=== PATIENT | female | born 1945 | race Caucasian/White ===

== ENCOUNTER → 2017-12-24 | Outpatient (CLI) | payer OTHER | LOC: OIH 09:20 | PROVIDERS: ATTEND Internal Medicine | DX: J44.9 Chronic obstructive pulmonary disease, unspecified (principal) | CPT/HCPCS: 71046 ==

== ENCOUNTER → 2018-01-28 | Outpatient (CLI) | payer OTHER | END | disposition home or self-care (01) | LOC: OIH 10:11 | PROVIDERS: ATTEND Internal Medicine | DX: S63.501A Unspecified sprain of right wrist, initial encounter (principal); M79.89 Other specified soft tissue disorders; X58.XXXA Exposure to other specified factors, initial encounter; Y93.89 Activity, other specified; Y92.89 Other specified places as the place of occurrence of the external cause; Y99.8 Other external cause status | CPT/HCPCS: 73100 ==

== ENCOUNTER → 2019-06-06 | Outpatient (CLI) | payer OTHER | END | disposition home or self-care (01) | LOC: OIH 10:03 | PROVIDERS: ATTEND Internal Medicine | DX: M22.3X1 Other derangements of patella, right knee (principal) | CPT/HCPCS: 73560 ==

== ENCOUNTER 2021-11-22 07:28 | Inpatient (IN) | payer OTHER ==
[2021-11-22 07:42] LABS: BASOPHILS % (AUTO) 0.4 % (0.0-5.0); EOSINOPHILS % (AUTO) 0.2 % (0.0-8.0); HEMATOCRIT 23.5 % (36-48); LYMPHOCYTES % (AUTO) 14.9 % (21.0-51.0); MEAN CORPUSCULAR HEMOGLOBIN 30.1 pg (27.0-33.0); MEAN CORPUSCULAR HGB CONC 30.6 g/dL (32.0-36.0); MEAN CORPUSCULAR VOLUME 98.3 fL (79-99); MONOCYTES % (AUTO) 5.7 % (3.0-13.0); NEUTROPHILS % (AUTO) 78.3 % (40.0-77.0); PLATELET COUNT (AUTO) 182 K/uL (130-400); RED BLOOD CELL COUNT(AUTO) 2.39 MIL/uL (4.00-5.50); RED CELL DISTRIBUTION WIDTH 13.6 % (11.0-15.5); WHITE BLOOD COUNT (AUTO) 13.5 K/uL (4.8-10.8)
[2021-11-22 07:54] LABS: INR 1.06 (0.85-1.15); PROTHROMBIN TIME 11.5 SEC (9.6-11.6)
[2021-11-22 07:57] LABS: ALBUMIN 2.9 g/dL (3.5-5.0); BILIRUBIN,TOTAL 0.2 mg/dL (0.2-1.0); CREATININE 0.7 mg/dL (0.5-1.5); POTASSIUM 4.4 mmol/L (3.5-5.1); TOTAL PROTEIN, SERUM 5.7 g/dL (6.0-8.3)
[2021-11-22] MEDS ORDERED: LACTULOSE 20 GM/30 ML UDCUP PO PRN (08:30)
[2021-11-22] MEDS ORDERED: ONDANSETRON 4MG INJ IVP PRN (08:30)
[2021-11-22] MEDS ORDERED: LABETALOL 20MG SYG IV PRN (08:30)
[2021-11-22] MEDS ORDERED: OCTREOTIDE ACETATE 1,250 MCG in 0.9% NACL 250ML 250 ML IV SCH (08:30)
[2021-11-22] MEDS ORDERED: ACETAMINOPHEN 325 MG TAB PO PRN (08:30)
[2021-11-22] MEDS ORDERED: PANTOPRAZOLE 40 MG/VIAL IVP SCH (08:30)
[2021-11-22] MEDS ORDERED: HYDRALAZINE 20MG/ML VIAL IV PRN (08:30)
[2021-11-22] MEDS: INSULIN HUMULIN R 100 UNIT/ML 3ML SQ SCH ×3 (11:30→20:42)
[2021-11-22 11:50] VITALS: BP 103/64
[2021-11-22] MEDS: HYDROMORPHONE 0.5 MG SYG (0.5MG/0.5ML) IVP PRN ×2 (14:45→22:05)
[2021-11-22 15:10] VITALS: BP 115/59
[2021-11-22 19:38] LABS: HEMATOCRIT 24.1 % (36-48)
[2021-11-22 20:18] VITALS: BP 135/48
[2021-11-22] MEDS: PANTOPRAZOLE 40 MG/VIAL IVP SCH (20:40)
[2021-11-23] VITALS (14 sets, daily range): BP systolic 101–152; BP diastolic 49–65
[2021-11-23] MEDS: INSULIN HUMULIN R 100 UNIT/ML 3ML SQ SCH ×4 (05:57→21:41)
[2021-11-23 06:11] LABS: HEMATOCRIT 24.3 % (36-48)
[2021-11-23 06:19] LABS: CREATININE 0.6 mg/dL (0.5-1.5); MAGNESIUM 1.9 mg/dL (1.80-2.40); PHOSPHORUS 3.3 mg/dL (2.5-4.9); POTASSIUM 4.3 mmol/L (3.5-5.1)
[2021-11-23] MEDS: PANTOPRAZOLE 40 MG/VIAL IVP SCH (09:00)
[2021-11-23] MEDS ORDERED: PROPOFOL 10 MG/ML 20ML VIAL IV ONE (11:19)
[2021-11-23] MEDS: GABAPENTIN 100 MG CAPSULE PO SCH (20:40)
[2021-11-23] MEDS: PANTOPRAZOLE 40 MG TAB DR PO SCH (20:40)
[2021-11-23 20:55] LABS: HEMATOCRIT 21.8 % (36-48)
[2021-11-24] VITALS: BP_SYST 116; BP_SYST 118; BP_SYST 153; BP_DIAS 52; BP_DIAS 58; BP_DIAS 75
[2021-11-24 03:54] LABS: BASOPHILS % (AUTO) 0.6 % (0.0-5.0); EOSINOPHILS % (AUTO) 1.9 % (0.0-8.0); LYMPHOCYTES % (AUTO) 22.8 % (21.0-51.0); MEAN CORPUSCULAR HEMOGLOBIN 29.5 pg (27.0-33.0); MEAN CORPUSCULAR HGB CONC 31.4 g/dL (32.0-36.0); MONOCYTES % (AUTO) 9.6 % (3.0-13.0); NEUTROPHILS % (AUTO) 64.7 % (40.0-77.0); PLATELET COUNT (AUTO) 142 K/uL (130-400); RED BLOOD CELL COUNT(AUTO) 2.34 MIL/uL (4.00-5.50); RED CELL DISTRIBUTION WIDTH 16.7 % (11.0-15.5); WHITE BLOOD COUNT (AUTO) 5.1 K/uL (4.8-10.8)
[2021-11-24 04:00] VITALS: BP 102/50
[2021-11-24 04:24] LABS: ALBUMIN 2.7 g/dL (3.5-5.0); BILIRUBIN,TOTAL 0.3 mg/dL (0.2-1.0); CREATININE 0.5 mg/dL (0.5-1.5); POTASSIUM 3.7 mmol/L (3.5-5.1); TOTAL PROTEIN, SERUM 5.2 g/dL (6.0-8.3)
[2021-11-24 04:43] LABS: % IRON SATURATION 7.8 % (22-44)
[2021-11-24] MEDS: INSULIN HUMULIN R 100 UNIT/ML 3ML SQ SCH ×4 (05:50→20:45)
[2021-11-24 08:00] VITALS: BP 123/48
[2021-11-24] MEDS: GABAPENTIN 100 MG CAPSULE PO SCH ×3 (08:04→19:54)
[2021-11-24] MEDS: PANTOPRAZOLE 40 MG TAB DR PO SCH ×2 (08:04→19:53)
[2021-11-24 12:00] VITALS: BP 110/49
[2021-11-24 12:27] LABS: HEMATOCRIT 25.8 % (36-48)
[2021-11-24 16:00] VITALS: BP 98/47
[2021-11-24 16:44] LABS: HEMATOCRIT 23.8 % (36-48)
[2021-11-24 20:00] VITALS: BP 109/44
[2021-11-24 20:47] LABS: HEMATOCRIT 24.3 % (36-48)
[2021-11-25] VITALS: BP 120/59
[2021-11-25 04:00] VITALS: BP 134/56
[2021-11-25 04:58] LABS: BASOPHILS % (AUTO) 0.5 % (0.0-5.0); EOSINOPHILS % (AUTO) 1.8 % (0.0-8.0); HEMATOCRIT 26.1 % (36-48); LYMPHOCYTES % (AUTO) 25.9 % (21.0-51.0); MEAN CORPUSCULAR HGB CONC 31.8 g/dL (32.0-36.0); MEAN CORPUSCULAR VOLUME 91.3 fL (79-99); NEUTROPHILS % (AUTO) 61.6 % (40.0-77.0); PLATELET COUNT (AUTO) 127 K/uL (130-400); RED BLOOD CELL COUNT(AUTO) 2.86 MIL/uL (4.00-5.50); WHITE BLOOD COUNT (AUTO) 4.4 K/uL (4.8-10.8)
[2021-11-25 05:29] LABS: ALBUMIN 2.7 g/dL (3.5-5.0); BILIRUBIN,TOTAL 0.4 mg/dL (0.2-1.0); CREATININE 0.5 mg/dL (0.5-1.5); POTASSIUM 3.8 mmol/L (3.5-5.1); TOTAL PROTEIN, SERUM 5.4 g/dL (6.0-8.3)
[2021-11-25] MEDS: INSULIN HUMULIN R 100 UNIT/ML 3ML SQ SCH ×3 (06:31→16:30)
[2021-11-25 07:35] VITALS: BP 111/48
[2021-11-25 09:10] LABS: HEMATOCRIT 27.3 % (36-48)
[2021-11-25] MEDS: PANTOPRAZOLE 40 MG TAB DR PO SCH (09:15)
[2021-11-25] MEDS: GABAPENTIN 100 MG CAPSULE PO SCH (09:17)
[2021-11-25 11:15] VITALS: BP 102/56
[2021-11-25] MEDS ORDERED: METF-446 PO (13:03)
[2021-11-25] MEDS ORDERED: LEVO100C4 PO (13:03)
[2021-11-25] MEDS ORDERED: ROSU20TA31 (13:03)
[2021-11-25] MEDS ORDERED: GABAPENTIN 300 MG CAPSULE PO SCH (14:00)
[2021-11-25] MEDS ORDERED: IRON SUCROSE COMPLEX 100 MG in 0.9%NACL 50ML 50 ML IV STA (15:07)
[2021-11-25] MEDS ORDERED: FERS325 PO (15:12)
[2021-11-25 15:15] VITALS: BP 131/68
[2021-11-25] MEDS ORDERED: IRON SUCROSE COMPLEX 100 MG in 0.9%NACL 50ML 50 ML IV SCH (16:13)
== END 2021-11-25 18:00 | disposition home or self-care (01) | DRG 381 ==
LOC: EDH 07:28 → EDHIP 08:30 → OBSVTOIN 08:30 → 3DH 12:04
PROVIDERS: ADMIT Internal Medicine Critical Care Medicine; ATTEND Internal Medicine Critical Care Medicine
PROC: 30233N1 Transfusion of Nonautologous Red Blood Cells into Peripheral Vein, Percutaneous Approach (ICD-10-PCS; 2021-11-22)
PROC: 0DB98ZX Excision of Duodenum, Via Natural or Artificial Opening Endoscopic, Diagnostic (ICD-10-PCS; principal; 2021-11-23)
DX: K31.5 Obstruction of duodenum (principal); D62 Acute posthemorrhagic anemia; K31.89 Other diseases of stomach and duodenum; E11.9 Type 2 diabetes mellitus without complications; E78.5 Hyperlipidemia, unspecified; E78.00 Pure hypercholesterolemia, unspecified; D69.6 Thrombocytopenia, unspecified; K59.00 Constipation, unspecified; D50.9 Iron deficiency anemia, unspecified; D53.9 Nutritional anemia, unspecified; Z79.84 Long term (current) use of oral hypoglycemic drugs; Z79.890 Hormone replacement therapy; Z87.11 Personal history of peptic ulcer disease
CPT/HCPCS: 36415; 36430; 43239; 80048; 80053; 82270; 82948; 83540; 83550; 83735; 84100; 85014; 85018; 85025; 85045; 85610; 86850; 86870; 86900; 86901; 86905; 86922; 93005; 99291; A4606; C9113; G0378; J1170; J1756; J1815; J2354; J2405; J2704; J7030; J7050; P9016

== ENCOUNTER 2023-08-28 09:13 | Emergency (ER) | payer OTHER ==
[~2023-08-28] VITALS: Ht 162.6 cm; Wt 59.0 kg
[~2023-08-28 09:13] MED LIST: FERS325 PO; LEVO100C4 PO; METF-446 PO; ROSU20TA73
[2023-08-28 09:17] VITALS: BP 143/70; PULSE 72; RESP 16; O2SAT 100
[2023-08-28] MEDS ORDERED: KETOROLAC 15MG/ML VIAL (15MG/ML) IM ONE (10:00)
[2023-08-28] MEDS ORDERED: CYCLOBENZAPRINE HCL 10 MG TABLET PO ONE (10:00)
[2023-08-28 10:10] LABS: APPEARANCE,URINE CLEAR (CLEAR); BILIRUBIN,URINE NEGATIVE (NEGATIVE); COLOR,URINE LIGHT-YELLOW (YELLOW); GLUCOSE, URINE (UA) >=1000 mg/dL (NEGATIVE); KETONES,URINE 5 mg/dL (NEGATIVE); LEUKOCYTE ESTERASE ,URINE NEGATIVE Leu/uL (NEGATIVE); NITRATE,URINE NEGATIVE (NEGATIVE); OCCULT BLOOD,URINE NEGATIVE (NEGATIVE); PH,URINE 7.5 (5.0-8.0); PROTEIN,URINE NEGATIVE (NEGATIVE); UROBILINOGEN,URINE 0.2 mg/dL (0.2-1.0)
[2023-08-28 10:11] LABS: ADD UA MICROSCOPIC YES
[2023-08-28 10:12] LABS: MUCUS,URINE RARE LPF (None Seen); RBC,URINE 0-1 /HPF (0-1); SQUAMOUS EPITHELIAL CELL,UR RARE /HPF (0-2); WBC,URINE 0-1 /HPF (0-1)
== END 2023-08-28 12:21 | disposition left against medical advice (07) ==
LOC: EDH 09:13
DX: M54.50 Low back pain, unspecified (principal); E11.9 Type 2 diabetes mellitus without complications; E78.00 Pure hypercholesterolemia, unspecified; Z79.84 Long term (current) use of oral hypoglycemic drugs; Z79.890 Hormone replacement therapy; Z79.899 Other long term (current) drug therapy; Z90.49 Acquired absence of other specified parts of digestive tract
CPT/HCPCS: 99283; 81001; 72100; 72190; J1885